=== PATIENT | female | born 1950 | race Caucasian/White ===

== ENCOUNTER → 2020-03-06 23:51 | Outpatient (CLI) | payer OTHER | END | disposition home or self-care (01) | LOC: D.MAMMO 08:30 | PROVIDERS: ATTEND Family Medicine | DX: Z12.31 Encounter for screening mammogram for malignant neoplasm of breast (principal) ==

== ENCOUNTER → 2020-03-22 07:55 | Outpatient (CLI) | payer OTHER | END | disposition home or self-care (01) | LOC: D.US 07:55 | PROVIDERS: ATTEND Family Medicine | DX: N63.41 Unspecified lump in right breast, subareolar (principal) ==